=== PATIENT | female | born 2000 | race American Indian/Alaskan Native ===

== ENCOUNTER 2019-03-17 02:45 | Outpatient (CLI) | payer MEDICAID ==
[2019-03-17 03:31] VITALS: BP 113/71
[2019-03-17] MEDS ORDERED: VISTARIL PO ONE (03:55)
== END 2019-03-17 04:24 | disposition home or self-care (01) ==
LOC: TRG 02:45
PROVIDERS: ATTEND Obstetrics & Gynecology
DX: O47.03 False labor before 37 completed weeks of gestation, third trimester (principal); Z3A.37 37 weeks gestation of pregnancy
CPT/HCPCS: 59025; Q0177

== ENCOUNTER 2019-03-17 21:17 | Outpatient (CLI) | payer MEDICAID ==
[2019-03-17 21:48] VITALS: BP 126/83
== END 2019-03-17 22:20 | disposition home or self-care (01) ==
LOC: TRG 21:17
PROVIDERS: ATTEND Obstetrics & Gynecology
DX: O47.03 False labor before 37 completed weeks of gestation, third trimester (principal); Z3A.37 37 weeks gestation of pregnancy
CPT/HCPCS: 59025